=== PATIENT | male | born 1980 | race Caucasian/White ===

== ENCOUNTER 2016-11-28 11:00 | Emergency (ER) | payer OTHER ==
[2016-11-28] MEDS ORDERED: Nitroglycerin 0.4 MG TAB 1 EACH ONE (11:29)
[2016-11-28] MEDS ORDERED: Aspirin 325 MG TAB ONE (11:29)
[2016-11-28 11:41] LABS: #Basophils 0.1 thou/uL (0.0-0.2); #Eosinphils 0.1 thou/uL (0.0-0.7); #Lymphocytes 1.3 thou/uL (1.20-3.40); #Monocytes 0.5 thou/uL (0.11-0.59); #Neutrophils 5.2 thou/uL (1.40-6.50); %Basophils 0.9 % (0.0-1.0); %Eosinophils 1.4 % (0.0-10.0); %Lymphocytes 18.1 % (21.0-51.0); %Monocytes 6.5 % (0.0-10.0); %Neutrophils 73.1 % (42.0-75.0); Hemoglobin 16.2 g/dL (14.0-18.0); Mean Corpuscular HGB CONC 34.4 g/dL (32.0-36.0); Mean Corpuscular Hemoglobin 32.4 pg (27.0-31.0); Mean Corpuscular Volume 94.2 fl (80.0-94.0); Mean Platelet Volume 11.5 fL (7.4-10.4); Platelet Count 191 thou/uL (130-400); RBC Distribution Width 11.7 % (11.5-14.5); Red Blood Cell (RBC) Count 4.98 mill/uL (4.70-6.10); White Blood Cell (WBC) Count 7.2 thou/uL (4.8-10.8)
[2016-11-28 11:51] LABS: PTT 28.8 SEC (22.9-36.1); Prothrombin Time 13.8 SEC (12.0-14.7)
[2016-11-28 12:02] LABS: ALT (SGPT) 18 U/L (8-55); AST (SGOT) 21 U/L (5-34); Alkaline Phosphatase 44 U/L (40-150); Anion Gap 17 mmol/L (10-20); BUN (Urea Nitrogen) 9 mg/dL (8.9-20.6); Bilirubin, Total 1.3 mg/dL (0.2-1.2); CK (CPK) 259 U/L (30-200); Calc. Creatinine Clearance 0 mL/min (70-130); Calcium 9.2 mg/dL (7.8-10.44); Carbon Dioxide 20 mmol/L (22-29); Chloride 108 mmol/L (98-107); Estimated GFR-MDRD Greater than 90; Globulin 2.6 g/dL (2.4-3.5); Glucose 111 mg/dL (70-105); Magnesium 1.9 mg/dL (1.6-2.6); Potassium 4.1 mmol/L (3.5-5.1); Protein, Total 6.6 g/dL (6.0-8.3); Sodium 141 mmol/L (136-145)
[2016-11-28 12:04] LABS: CKMB 1.4 ng/mL (0-6.6); Troponin I Less than 0.010 ng/mL (< 0.028)
[2016-11-28] MEDS ORDERED: Ketorolac Tromethamine 30 MG/ML VIAL ONE (12:22)
--- NOTE | 2016-11-28 12:58 | RAD ---
SINGLE VIEW OF THE CHEST: Comparison: 01-28-12 History: Chest pain. FINDINGS: Single view of the chest shows a normal sized cardiomediastinal silhouette. There is no evidence of consolidation, mass, or pleural effusion. The bones are unremarkable. IMPRESSION: No evidence of acute cardiopulmonary disease. POS: [facility]
== END 2016-11-28 12:33 | disposition home or self-care (01) ==
LOC: MADERS 11:00
DX: R07.89 Other chest pain (principal)
CPT/HCPCS: 36415; 71010; 80053; 82550; 82553; 83735; 83880; 84484; 85025; 85610; 85730; 93005; 94760; 96374; J1885

== ENCOUNTER 2017-12-09 12:02 | Emergency (ER) | payer OTHER ==
[2017-12-09] MEDS ORDERED: Ketorolac Tromethamine 30 MG/ML VIAL ONE (12:32)
[2017-12-09] MEDS ORDERED: traMADol HCl 50 MG TAB ONE (12:36)
--- NOTE | 2017-12-09 13:21 | RAD ---
FOUR VIEWS LEFT ELBOW: History: Left elbow pain. FINDINGS: AP, lateral, and both oblique views of the left elbow was obtained. The left elbow is unremarkable. N o evidence of fractures, subluxations, or bony lesions seen. IMPRESSION: Normal four views left elbow. POS: [facility]
--- NOTE | 2017-12-09 13:28 | RAD ---
TWO VIEWS LEFT FOREARM: History: Left forearm pain with trauma. FINDINGS: AP and lateral views of the left forearm are obtained and demonstrate a mildly displaced fracture inv olving the distal left radius. This is in the epiphyseal region. No significant evidence of angulatio n is seen. IMPRESSION: Distal left radial fracture. This appears to be acute. POS: [facility]
[2017-12-09] MEDS ORDERED: Triple Antibiotic Oint 1 GM Packet ONE (13:37)
== END 2017-12-09 14:00 | disposition home or self-care (01) ==
LOC: MADERS 12:02
DX: S52.502A Unspecified fracture of the lower end of left radius, initial encounter for closed fracture (principal); I10 Essential (primary) hypertension; W22.8XXA Striking against or struck by other objects, initial encounter
CPT/HCPCS: 29125; 96372; J1885

== ENCOUNTER 2018-03-08 10:14 | Outpatient (CLI) | payer OTHER ==
--- NOTE | 2018-03-08 12:19 | CT ---
HISTORY: Acute left-sided back pain. FINDINGS: Noncontrast-enhanced CT images of the abdomen and pelvis obtained. IV and oral contrast were not gi keyana. The lung bases are unremarkable. No evidence of free intraperitoneal air is seen. There is marked atrophy of the right anterior rectus muscle. The liver and spleen, gallbladder, and pancreas are unremarkable. Adrenal glands unremarkable. Bilateral renal calculi are seen. These measure approximately 3-4 mm. There is mild left-sided hydronephrosis with an approximately 3.6 mm proximal left ureteral calculus, likely accounting for the patient's symptoms. The rest of the right and left ureters are unremarkab le. No dilated loops of small bowel seen. No definite visualization of the appendix seen. The colon is unremarkable. A 3.8 mm obstructing proximal left ureteral calculus. POS: [facility]
== END 2018-03-08 10:15 | disposition home or self-care (01) ==
LOC: MADCT 10:14
PROVIDERS: ATTEND Family Medicine
DX: M54.6 Pain in thoracic spine (principal)
CPT/HCPCS: 74176